=== PATIENT | female | born 1980 | race American Indian/Alaskan Native ===

== ENCOUNTER 2017-09-30 08:51 | Emergency (ER) | payer OTHER ==
[2017-09-30 09:21] VITALS: BP 138/95
--- NOTE | 2017-09-30 10:36 | Emergency Department Report ---
HPI - General Chief Complaint: Skin Rash Time Seen by Provider: 09/30/17 10:33 - HPI HPI: Patient with history of alllergic rhinitis, dermatitis presents to ER with frequent sneezing, nasal congestion, clear rhinorrhea, and not itching all over. Patient also complained of nightly cough. No chest pain, no shortness of breath, no fever. ED Past Medical Hx - Past Medical History Previous Medical History?: Yes Hx Hypertension: Yes Additional medical history: VAGINAL DLEIVERY X 6 - Surgical History Past Surgical History?: No - Social History Smoking Status: Never Smoker Substance Use Type: Prescribed - Medications Home Medications: Home Medications Medication Instructions Recorded Confirmed Last Taken Type Cetirizine HCl [ZyrTEC] 10 mg PO DAILY #30 tab.rapdis 09/30/17 Unknown Rx Triamcinolone 0.5% [Kenalog 0.5% 1 applic TP TID #1 tube 09/30/17 Unknown Rx CREAM] ED Review of Systems ROS: Stated complaint: ALLERGIC TO LATEX/RASH Other details as noted in HPI Comment: All other systems reviewed and negative Constitutional: denies: chills, fever Eyes: eye pain ENT: congestion. denies: ear pain, throat pain Cardiovascular: denies: chest pain, palpitations Skin: rash. denies: lesions Psychiatric: denies: anxiety, depression Physical Exam - Physical Exam Vital Signs: Vital Signs 09/30/17 09:17 Temperature 98.2 F Pulse Rate 73 Respiratory 20 Rate Blood Pressure 138/95 O2 Sat by Pulse 99 Oximetry Physical Exam: Gen. alert and oriented 3 in no distress Head atraumatic normocephalic Eyes PERR LA EOMI Nose: Clear nasal rhinorrhea Chest regular rate and rhythm normal S1-S2 lungs clear bilaterally Abdomen soft nondistended Back no point tenderness paravertebral tenderness Neuro no focal deficit. Psych normal mood. Skin: Upper extremity dermatitis ED Course Vital Signs 09/30/17 09:17 Temperature 98.2 F Pulse Rate 73 Respiratory 20 Rate Blood Pressure 138/95 O2 Sat by Pulse 99 Oximetry Critical care attestation.: If time is entered above; I have spent that time in minutes in the direct care of this critically ill patient, excluding procedure time. ED Disposition Clinical Impression: Dermatitis Allergic rhinitis Qualifiers: Allergic rhinitis trigger: unspecified Allergic rhinitis seasonality: seasonal Qualified Code(s): J30.2 - Other seasonal allergic rhinitis Disposition: - TO HOME OR SELFCARE Is pt being admited?: No Does the pt Need Aspirin: No Condition: Stable Prescriptions: Cetirizine HCl [ZyrTEC] 10 mg PO DAILY #30 tab.rapdis Triamcinolone 0.5% [Kenalog 0.5% CREAM] 1 applic TP TID #1 tube Referrals: PRIMARY CARE,MD [Primary Care Provider] - 3-5 Days
== END 2017-09-30 10:48 | disposition home or self-care (01) ==
LOC: ED 08:51
DX: L30.9 Dermatitis, unspecified (principal); J30.9 Allergic rhinitis, unspecified; I10 Essential (primary) hypertension
CPT/HCPCS: 99282